=== PATIENT | male | born 1955 | race Caucasian/White ===

== ENCOUNTER 2019-04-18 16:18 | Inpatient (IN) | payer BC ==
[~2019-04-18] VITALS: Ht 180.3 cm; Wt 74.0 kg
[~2019-04-18 16:18] MED LIST: AMOX1TAB10 PO; APIX5TAB PO; CLOP75TA19 PO; CYAN-23 PO; CYAN100080 PO; FER325 PO; FERR325C PO; FINA5TAB4 PO; HYDR-3498 PO; LOSA50TA14 PO; METF100010 PO; MULT-552 PO; MULT1TAB6 PO; OLME20TA20 PO; SIMV10TA PO; SIMV5TAB14 PO; TAMS-14 PO; TAMS0.4C2 PO; VALS80TA2 PO; WARF5TAB PO
[2019-04-18] MEDS ORDERED: SOD CHLORIDE 0.9% 1,000 ML IV STA (16:21)
[2019-04-18] MEDS ORDERED: ASPIRIN 81 MG TAB PO ONE (16:30)
[2019-04-18] MEDS: SOD CHLORIDE 0.45% 1,000 ML IV SCH ×2 (18:27→21:45)
[2019-04-18] MEDS ORDERED: GLUCOSE GEL 15 GRAM TUBE BUCCAL PRN (18:30)
[2019-04-18] MEDS ORDERED: NON-FORMULARY/PATIENT OWN MED (Cyanocobalamin (Vitamin B-12) (Vitamin B-12) 1,000 MCG) PO SCH (18:30)
[2019-04-18] MEDS ORDERED: GLUCAGON 1 MG INJ IM PRN (18:30)
[2019-04-18] MEDS ORDERED: GLUCOSE GEL 15 GRAM TUBE PO PRN ×2 (18:30)
[2019-04-18] MEDS ORDERED: DOCUSATE SODIUM 100 MG CAP PO PRN (18:30)
[2019-04-18] MEDS ORDERED: hydrALAzine 20 MG INJ IV PRN (18:30)
[2019-04-18] MEDS ORDERED: ONDANSETRON 4 MG INJ IV PRN (18:30)
[2019-04-18] MEDS ORDERED: DEXTROSE 50% 50 ML SYRINGE IV PRN ×2 (18:30)
[2019-04-18] MEDS ORDERED: morphine 2 MG INJ IV PRN ×2 (18:30→22:30)
[2019-04-18] MEDS ORDERED: HYDROCODONE/APAP (5/325) TAB PO PRN (18:30)
[2019-04-18] MEDS ORDERED: ALBUTEROL/IPRATROPIUM (NEB) 3 ML AMP HHN PRN (18:30)
[2019-04-18] MEDS ORDERED: ACETAMINOPHEN 325 MG TAB PO PRN (18:30)
[2019-04-18] MEDS ORDERED: NITROGLYCERIN (SL) 0.4 MG TAB SL PRN (18:30)
[2019-04-18] MEDS ORDERED: MAGNESIUM HYDROXIDE 30ML CUP PO PRN (18:30)
[2019-04-18] MEDS ORDERED: NACL 0.9% 3 ML SYG IV SCH (18:30)
[2019-04-18] MEDS: LORAZEPAM 2 MG INJ IV PRN (20:03)
[2019-04-18 21:00] VITALS: Ht 180.3 cm; Wt 74.0 kg
[2019-04-18] MEDS: INSULIN ASPART [NOVOLOG] 3 ML PEN SC SCH (21:00)
[2019-04-18] MEDS ORDERED: SIMVASTATIN 5 MG PO SCH (21:00)
[2019-04-18] MEDS ORDERED: TAMSULOSIN (SR) 0.4 MG CAP PO SCH (21:00)
[2019-04-18] MEDS: ATORVASTATIN 10 MG TAB PO SCH (21:42)
[2019-04-19] VITALS (9 sets, daily range): BP systolic 105–128; BP diastolic 65–74; PULSE 79–96; RESP 18–21
[2019-04-19] MEDS: INSULIN ASPART [NOVOLOG] 3 ML PEN SC SCH ×6 (01:00→21:00)
[2019-04-19] MEDS: ACCU-CHEK XX SCH (01:09)
[2019-04-19] MEDS: PANTOPRAZOLE (EC) 40 MG TAB PO SCH (05:26)
[2019-04-19] MEDS ORDERED: MAGNESIUM SULFATE 4 GM/100 ML 100 ML IVPB STA (08:51)
[2019-04-19] MEDS ORDERED: CLOPIDOGREL 75 MG TAB PO SCH (09:00)
[2019-04-19] MEDS: MULTIVITAMINS/MINERALS TAB PO SCH (09:02)
[2019-04-19] MEDS: FINASTERIDE 5 MG TAB PO SCH (09:02)
[2019-04-19] MEDS: FERROUS SULFATE (EC) 325 MG TAB PO SCH (09:02)
[2019-04-19] MEDS: LORAZEPAM 2 MG INJ IV PRN (11:34)
[2019-04-19] MEDS: SOD CHLORIDE 0.45% 1,000 ML IV SCH (15:31)
[2019-04-19] MEDS ORDERED: LORAZEPAM 2 MG INJ IV ONE (16:43)
[2019-04-19] MEDS: ATORVASTATIN 10 MG TAB PO SCH (21:04)
[2019-04-20] VITALS: BP 110/67; PULSE 88; RESP 19
[2019-04-20] MEDS: ACCU-CHEK XX SCH (02:00)
[2019-04-20 04:00] VITALS: BP 119/65; PULSE 82; RESP 20
[2019-04-20] MEDS: PANTOPRAZOLE (EC) 40 MG TAB PO SCH (06:45)
[2019-04-20 07:42] VITALS: BP 118/68; PULSE 90; RESP 17
[2019-04-20] MEDS: MULTIVITAMINS/MINERALS TAB PO SCH (08:26)
[2019-04-20] MEDS: FERROUS SULFATE (EC) 325 MG TAB PO SCH (08:26)
[2019-04-20] MEDS: FINASTERIDE 5 MG TAB PO SCH (08:26)
[2019-04-20] MEDS: INSULIN ASPART [NOVOLOG] 3 ML PEN SC SCH ×2 (08:48→12:42)
[2019-04-20] MEDS ORDERED: CYANOCOBALAMIN 500 MCG TAB PO SCH (09:00)
[2019-04-20] MEDS ORDERED: CEFTRIAXONE 1 GM/50 ML (PMX) 50 ML IVPB ONE (10:30)
[2019-04-20 11:48] VITALS: BP 119/64; PULSE 98; RESP 18
== END 2019-04-20 14:58 | disposition home health service (06) | DRG 641 ==
LOC: E/R 16:18 → 6WM 17:27
PROVIDERS: ADMIT Hospitalist; ATTEND Family Medicine
DX: E86.0 Dehydration (principal); N17.9 Acute kidney failure, unspecified; N39.0 Urinary tract infection, site not specified; F10.988 Alcohol use, unspecified with other alcohol-induced disorder; E87.1 Hypo-osmolality and hyponatremia; D64.9 Anemia, unspecified; E83.42 Hypomagnesemia; E11.9 Type 2 diabetes mellitus without complications; E78.5 Hyperlipidemia, unspecified; I10 Essential (primary) hypertension; N40.0 Benign prostatic hyperplasia without lower urinary tract symptoms; R31.9 Hematuria, unspecified; Z86.718 Personal history of other venous thrombosis and embolism; Z79.01 Long term (current) use of anticoagulants; Z79.02 Long term (current) use of antithrombotics/antiplatelets; Z79.84 Long term (current) use of oral hypoglycemic drugs
CPT/HCPCS: 70450; 70551; 71045; 72141; 76775; 80048; 80053; 80061; 80307; 81001; 81003; 82270; 82550; 82553; 82570; 82607; 82728; 82746; 82962; 83036; 83540; 83690; 83735; 83930; 83935; 83970; 84100; 84155; 84165; 84300; 84439; 84443; 84484; 85025; 85651; 86140; 87086; 92610; 93005; 93306; 93880; 97116; 97161; 97167; J0696; J1815; J2060; J7030